=== PATIENT | female | born 1950 | race Two or more races ===

== ENCOUNTER 2019-03-25 11:37 | Day surgery (SDC) | payer MEDICARE, MEDICAID ==
[2019-03-25] VITALS (10 sets, daily range): BP systolic 141–159; BP diastolic 69–76
[~2019-03-25] VITALS: Ht 162.6 cm; Wt 75.7 kg
[~2019-03-25 11:37] MED LIST: NKM; ceFAZolin sod 1 GM in NS 55 ML IVPB ONE
[2019-03-25] MEDS ORDERED: LR 1000ml ONE (13:00)
[2019-03-25] MEDS ORDERED: Sterile Water Irrig 1000ml IRRIG ONE (13:00)
[2019-03-25] MEDS ORDERED: NS Irrig 1000ml ONE (13:00)
[2019-03-25] MEDS ORDERED: Propofol 200mg/20ml IV ONE (13:00)
[2019-03-25] MEDS ORDERED: LR 1000ml 1,000 ML IVLG SCH (13:08)
[2019-03-25] MEDS ORDERED: Dexamethasone 4mg/ml vial ONE ×2 (13:09→13:12)
[2019-03-25] MEDS ORDERED: Lidocaine 1% Plain 30 ml INJ ONE (13:09)
[2019-03-25] MEDS ORDERED: Bacitracin Oint 15gm Tube TOPIC ONE (13:09)
[2019-03-25] MEDS ORDERED: Bacitracin 50000 Units Vial ONE (13:10)
--- NOTE | 2019-03-25 13:10 | Pre-Procedure Note/Attestation ---
Pre-Procedure Note/Attestation Complete Prior to Procedure Planned Procedure: right Procedure Narrative: correction of hammer toe with arthroplasty and k-wire fiction right 4th and 5th Indications for Procedure Pre-Operative Diagnosis: painful hammer toe right 4th and 5th Attestation I attest that I discussed the nature of the procedure; its benefits; risks and complications; and alternatives (and the risks and benefits of such alternatives ), prior to the procedure, with the patient (or the patient's legal senior patient account representative). I attest that, if there was a reasonable possibility of needing a blood transfusion, the patient (or the patient's legal senior patient account representative) was given the [facility] standardized written summary, pursuant to the [place] Blood Safety Act ([place] Health and Safety Code # 1645, as amended). I attest that I re-evaluated the patient just prior to the surgery and that there has been no change in the patient's H&P, except as documented below: Cornelio Andujar DPM Mar 25, 2019 13:10
[2019-03-25] MEDS ORDERED: Sodium Chloride 10ml vial INJ ONE (13:12)
[2019-03-25] MEDS ORDERED: Lidocaine 1% MPF 10mg/ml 5ml ONE (13:12)
[2019-03-25] MEDS ORDERED: fentaNYL 100 mcg/2 mL IV ONE (13:12)
[2019-03-25] MEDS ORDERED: fentaNYL 100 mcg/2 mL IV PRN (13:15)
[2019-03-25] MEDS ORDERED: Metoclopramide 10mg/2ml Inj IVP PRN (13:15)
[2019-03-25] MEDS ORDERED: Meperidine 50mg/ml Inj(FOR RIGORS ONLY) IVP PRN (13:15)
[2019-03-25] MEDS ORDERED: HYDROcodone/Acetamin 7.5/325 tab ORAL PRN (13:15)
[2019-03-25] MEDS ORDERED: Labetalol 5mg/ml 20ml vial IV PRN (13:15)
[2019-03-25] MEDS ORDERED: HYDROcodone/Acetamin 5/325 tab ORAL PRN (13:15)
[2019-03-25] MEDS ORDERED: Ketorolac 30mg Inj IV PRN ×2 (13:15)
[2019-03-25] MEDS ORDERED: LORazepam Inj 2mg/ml 1ml IV PRN (13:15)
[2019-03-25] MEDS ORDERED: DiphenhydrAMINE 50mg/ml Inj IVP PRN (13:15)
[2019-03-25] MEDS ORDERED: Midazolam 2mg/2ml Inj IVP PRN (13:15)
[2019-03-25] MEDS ORDERED: oxyCODONE HCL/Acetaminophen 5/325mg ORAL PRN (13:15)
[2019-03-25] MEDS ORDERED: Atropine Sulfate 0.4mg/ml inj IVP PRN (13:15)
[2019-03-25] MEDS ORDERED: Hydromorphone 0.5mg/0.5ml inj IVP PRN (13:15)
[2019-03-25] MEDS: Bupivacaine 0.25% Inj 30ml INJ ONE ×2 (13:30→14:08)
--- NOTE | 2019-03-25 13:48 | Anethesia Preoperative Eval ---
Anesthesia Pre-op PMH/ROS General Date of Evaluation: Mar 25, 2019 Time of Evaluation: 13:09 Anesthesiologist: Yudelka ASA Score: ASA 2 Mallampati Score Class I : Soft palate, uvula, fauces, pillars visible Class II: Soft palate, uvula, fauces visible Class III: Soft palate, base of uvula visible Class IV: Only hard plate visible Mallampati Classification: Class II Surgeon: Pratima Diagnosis: Right 5th Hammertoe Surgical Procedure: Right 5th Hammertoe Correction Anesthesia History: none Family History: no anesthesia problems Allergies: Coded Allergies: No Known Allergies (Unverified , 03/24/19) Medications: see eMAR Patient NPO?: Yes Past Medical History Cardiovascular: Reports: HTN Other: obesity - BMI 30 Anesthesia Pre-op Phys. Exam Physician Exam Last Vital Signs Date Time Temp Pulse Resp B/P (MAP) Pulse Ox O2 Delivery O2 Flow Rate FiO2 03/25/19 12:49 Room Air 03/25/19 12:39 97.5 67 18 141/76 97 Constitutional: NAD Neurologic: CN 2-12 intact Cardiovascular: RRR Respiratory: CTA Gastrointestinal: S/NT/ND Airway Exam Mallampati Score: Class II MO: full ROM: limited Teeth: missing Anesthesia Pre-op A/P Risk Assessment & Plan Assessment: ASA 2 Plan: GA, SED Status Change Before Surgery: No Pre-Antibiotics Dru Grams Ancef IV Given Within 1 Hr of Incision: Yes Time Given: 13:26 Rubin Jha MD Mar 25, 2019 13:48
--- NOTE | 2019-03-25 13:49 | 48 Hour Post Anesthesia Eval ---
Post Anesthesia Evaluation Procedure: Right 5th Hammertoe Correction Date of Evaluation: Mar 25, 2019 Time of Evaluation: 16:42 Blood Pressure Systolic: 147 0: 71 Pulse Rate: 56 Respiratory Rate: 18 Temperature (Fahrenheit): 98.5 O2 Sat by Pulse Oximetry: 99 Airway: patent Nausea: No Vomiting: No Pain Intensity: 1 Cardiopulmonary Status: Stable Follow-up Care/Observations: 0 Post-Anesthesia Complications: 0 Follow-up care needed: ready to discharge Rubin Jha MD Mar 25, 2019 13:49
--- NOTE | 2019-03-25 13:49 | Immediate Post-Op Evaluation ---
Immediate Post-Op Evalulation Immediate Post-Op Evalulation Procedure: Right 5th Hammertoe Correction Date of Evaluation: Mar 25, 2019 Time of Evaluation: 14:34 IV Fluids: 800 LR Blood Products: 0 Estimated Blood Loss: 9 Urinary Output: 0 Blood Pressure Systolic: 157 Blood Pressure Diastolic: 72 Pulse Rate: 58 Respiratory Rate: 16 O2 Sat by Pulse Oximetry: 100 Temperature (Fahrenheit): 98.4 Pain Score (1-10): 1 Nausea: No Vomiting: No Complications 0 Patient Status: awake, reacts, patent, none Hydration Status: adequate Dru Grams Ancef IV Given Within 1 Hr of Incision: Yes Time Given: 13:26 Rubin Jha MD Mar 25, 2019 13:49
--- NOTE | 2019-03-25 14:16 | Brief Operative Note ---
Immediate Post Operative Note Operative Note Pre-op Diagnosis: painful hammer toe right 4th and 5th Procedure: correction of hammertoe right foot 4th and 5th with arthroplasty Post-op Diagnosis: same as pre op Surgeon: cornelio andujar Anesthesiologist: Shruthi Anesthesia: MAC Specimen: yes Complications: none Condition: stable Fluids: 0 Estimated Blood Loss: none Drains: none Tourniquet time: 33 Implant(s) used?: No Cornelio Andujar DPM Mar 25, 2019 14:16
--- NOTE | 2019-03-25 17:20 | Diagnostic Imaging Report ---
Indication: Right foot pain Technique: 2 views of the right foot Comparison: none Findings: No acute fractures. No dislocations. Mild hammertoe deformities second through fifth digits noted. Impression: No acute process
--- NOTE | 2019-03-25 17:37 | Diagnostic Imaging Report ---
Indication: Postoperative, status post foot surgery Technique: 3 views right foot Comparison: 2 hours earlier Findings: Interim osteotomies of the fourth and fifth proximal phalangeal heads. No acute fractures. No dislocations. Impression: Status post fourth and fifth proximal phalangeal head osteotomies. No unusual features
--- NOTE | 2019-03-25 19:30 | Pre-op HX & Phy Repo 2 SIG ---
DATE OF ADMISSION: 03/25/2019 DATE OF SURGERY: 03/25/2019. HISTORY OF PRESENT ILLNESS: This is a 68-year-old female, coming in complaining of right foot pain secondary to hammertoe and painful corn on right fourth and fifth digits. The patient has had the problem for the past few years, but it has been getting progressively worse during the past few months. She has tried numerous conservative measures including having shaving of calluses, shoe change without any contribution to decrease in pain or deformity. She reports no recent illnesses. No recurrent nausea, vomiting, or shortness of breath. The patient is scheduled to have surgery today at [facility]. PAST MEDICAL HISTORY: Not pertinent. PAST SURGICAL HISTORY: The patient denies. ALLERGIES: No known drug allergies. SOCIAL HISTORY: Denies illicit drugs. FAMILY HISTORY: No pertinent finding. PHYSICAL EXAMINATION: VITAL SIGNS: Temperature is 98.7 degrees, pulse is 72, respirations 14, and blood pressure is 120/82. DERMATOLOGICAL: There are no open lesions, but there is hyperkeratotic tissue overlying the PIPJ joint of the fourth and fifth on the right. VASCULAR: Dorsalis pedis and posterior are palpable. No edema is noticed. MUSCULOSKELETAL: Contraction of the fourth and fifth digits on the right is noticed. Full muscle strength is noticed. No edema is present. ASSESSMENT: This is a 68-year-old female with a right foot pain, deformity and pain contributing from contraction of the fourth and fifth digits. The patient has tried conservative measures; however, she still has daily pain activity. Recommended surgery as the next extensive management. The risks, benefits, and alternatives were discussed with the patient in detail who understands and wants to proceed with surgical intervention. All patient questions have been addressed. The patient is scheduled to have surgery today at [facility]. Cornelio Andujar D.P.M. DR: ANGELA JOB#: [id number] CC:
--- NOTE | 2019-03-25 21:15 | Operative Note - Dictated ---
DATE OF OPERATION: 03/25/2019 FACILITY: [facility]. SURGEON: Cornelio Andujar D.P.M. PREOPERATIVE DIAGNOSES: 1. Fourth hammertoe, right. 2. Fifth hammer toe, right. POSTOPERATIVE DIAGNOSIS: 1. Fourth hammertoe, right. 2. Fifth hammer toe, right. TITLE OF OPERATION: 1. Correction of painful hammertoe right fourth with arthroplasty. 2. Correction of painful hammertoe fifth toe right with arthroplasty. ANESTHESIOLOGIST: Dr. Jha. MATERIALS USED: 3-0 Vicryl, 4-0 nylon. ESTIMATED BLOOD LOSS: Negligible. INJECTABLE: 40 mL of 0.25% Marcaine and 1% lidocaine in the ratio of 1:1 was injected into the MTP on the right third and fourth intraoperatively and postoperatively 2 mL of dexamethasone plus 6 mL of Marcaine was injected. PATHOLOGY: Bone resected from the head of the phalanx of the fourth and fifth digits was sent to pathology for study. DRESSING: The incision was covered using Xeroform, Betadine ointment, 4 x 4, Kerlix, and Blanco. COMPLICATION: None. CONDITION: Stable. DESCRIPTION OF THE PROCEDURE IN DETAIL: The patient was brought to the operating room, assisted to the operating table in supine position. She was well padded to avoid any excessive pressure. The foot was then scrubbed, prepared, and draped in the usual aseptic manner. 1 g of Ancef was given for sedation before the start of surgery. A well cotton padded pneumatic ankle tourniquet was then placed on the patient's right ankle. Local anesthesia was obtained using 40 mL of 1:1 mixture in terms of Wheeler block fashion at the base of the MPJ joints. The Esmarch was utilized to exsanguinate the right foot and the tourniquet was inflated to 250 mmHg. At this time, anesthesia was checked. The patient did not respond to the stimuli. An elliptical incision was done contouring the deformity, contouring the proximal phalangeal joints of the fifth toe encompassing the hyperkeratotic tissue. The wedge of skin was then removed. At this time, a transverse capsulotomy was done to gain access to the head of the proximal phalanx. The head of the proximal phalanx was then cleared from these attachments from medial and lateral plantar and using a sagittal saw, a 2 to 3 mm of the head was osteotomized and passed from the field. At this time, the toe was noticed to have significant decrease in contraction. The toe was then cleaned using normal saline encompassed with bacitracin. At this time, the extensor tendon was reapproximated using 3-0 Vicryl. The capsule was closed using 3-0 Vicryl. Subsequently, the skin was closed using 4-0 nylon. At this time, attention was then directed to the fourth toe where significant contraction of the proximal interphalangeal joint was noticed. An elliptical incision was done overlying the proximal interphalangeal joint encompassing the hyperkeratotic tissue. The wedge of skin was removed. At this time, a linear capsulotomy was then performed. The extensor tendon was cut transversely to gain access to the head of the proximal phalanx. The head of the proximal phalanx was then cleared from attachment and capsule and lingual attachment from medial, lateral, plantar, and dorsal. Approximately 3 mm of the head was then osteotomized and passed from the field. The area was then lavaged using normal saline encompassed with bacitracin. At this time, the extensor tendon was then reapproximated. The capsule was then closed and subcutaneous tissue closed using 3-0 Vicryl. Subsequently, the skin was closed using 4-0 nylon. At this time, a postoperative injection of approximately 2 mL of dex with 0.25% of 6 mL of Marcaine was given in the area for postoperative pain management. Dressing consisted of Xeroform, bacitracin ointment, 4 x 4, and Blanco was done on the operated site. After dressing was applied, the pneumatic ankle tourniquet was deflated and immediate hyperemia was noted to digits 1 through 5 on the right. The patient was transferred from the operating to recovery room with all vital signs stable. She will be discharged home upon clearance from anesthesia. The patient was given postoperative instructions written and verbal and postoperative prescription and appointment for the next following visit. Cornelio Andujar D.P.M. DR: ANGELA JOB#: [id number] CC:
== END 2019-03-25 16:10 | disposition home or self-care (01) ==
LOC: SUR 11:37
DX: M20.41 Other hammer toe(s) (acquired), right foot (principal); I10 Essential (primary) hypertension
CPT/HCPCS: 28285; 73630; 97161; J0690; J1100; J2001; J2250; J2405; J2704; J3010; J3490; 94003; 94150